=== PATIENT | male | born 1985 | race Caucasian/White ===

== ENCOUNTER 2021-01-13 11:35 | Inpatient (IN) | payer OTHER ==
[~2021-01-13] VITALS: Ht 172.7 cm; Wt 72.1 kg
[2021-01-13 12:00] VITALS: BP 163/116
[2021-01-13] MEDS ORDERED: NORVASC10 MG PO (12:08)
[2021-01-13] MEDS ORDERED: ROXICODONE5 M2 PO (12:08)
[2021-01-13] MEDS ORDERED: ELIQUIS5 MG PO (12:09)
[2021-01-13] MEDS ORDERED: CARVEDILOL12.5 MG PO (12:09)
[2021-01-13] MEDS ORDERED: METHOCARBAMOL750 MG PO (12:10)
[2021-01-13] MEDS ORDERED: SENNA8.6 MG PO (12:10)
[2021-01-13] MEDS ORDERED: OMEPRAZOLE 20 M20 M1 PO (12:10)
[2021-01-13] MEDS ORDERED: SUPER THERAVIT1 EACH PO (12:11)
[2021-01-13] MEDS ORDERED: ACETAMINOPHEN500 MG PO (12:11)
[2021-01-13 12:36] LABS: ABSOLUTE NEUTROPHILS 6.6 thou/uL (1.4-8.2); BASOPHILS 0.6 % (0.0-2.0); EOSINOPHILS 0.7 % (0.0-3.0); HEMATOCRIT 48.3 % (42.0-52.0); LYMPHOCYTES 22.3 % (24.0-44.0); MCH 27.4 pg (26.0-34.0); MCHC 33.1 g/dL (28.0-37.0); MCV 82.8 fL (80.0-100.0); MONOCYTES 7.1 % (1.0-8.0); PLATELET COUNT 292 thou/uL (150-400); POLYS 69.3 % (36.0-66.0); RBC 5.83 mil/uL (4.50-6.00); RDW 14.9 % (10.5-14.5); WBC 9.6 thou/uL (4.0-11.0)
[2021-01-13 12:50] LABS: ALBUMIN 4.1 g/dL (3.4-5.0); CREATININE 1.2 mg/dL (0.7-1.3); POTASSIUM 3.8 mmol/L (3.5-5.1); TOTAL BILIRUBIN 0.7 mg/dL (0.2-1.0); TOTAL PROTEIN 7.2 g/dL (6.4-8.2)
[2021-01-13 12:56] LABS: CALCIUM 9.2 mg/dL (8.5-10.1)
[2021-01-13 15:07] LABS: URINE BILIRUBIN NEGATIVE (Negative); URINE BLOOD NEGATIVE (Negative); URINE CLARITY CLEAR; URINE COLOR YELLOW; URINE GLUCOSE-RANDOM* NEGATIVE (Negative); URINE KETONES TRACE (Negative); URINE LEUKOCYTES-REFLEX NEGATIVE (Negative); URINE NITRITE-REFLEX NEGATIVE (Negative); URINE PROTEIN (DIPSTICK) NEGATIVE (Negative); URINE UROBILINOGEN 0.2 E.U./dl (0.2-1.0)
[2021-01-13 15:17] VITALS: BP 159/100
[2021-01-13 17:57] VITALS: BP 164/91
[2021-01-13 18:40] VITALS: BP 165/80
[2021-01-13 23:17] VITALS: BP 154/95
[2021-01-14] VITALS (7 sets, daily range): BP systolic 151–187; BP diastolic 10–148
[2021-01-14 05:51] LABS: HEMATOCRIT 48.5 % (42.0-52.0); HEMOGLOBIN 15.8 gm/dL (14.0-18.0); MCH 27.8 pg (26.0-34.0); MCHC 32.6 g/dL (28.0-37.0); MCV 85.3 fL (80.0-100.0); RBC 5.68 mil/uL (4.50-6.00); RDW 14.7 % (10.5-14.5); WBC 12.1 thou/uL (4.0-11.0)
[2021-01-14 06:05] LABS: CALCIUM 8.9 mg/dL (8.5-10.1); CREATININE 0.9 mg/dL (0.7-1.3); POTASSIUM 3.7 mmol/L (3.5-5.1)
--- NOTE | 2021-01-14 06:30 | NUR ---
Admission history and assessments completed. Patient is alert and oriented but very selective when answering question, CIWA 10-13 Ativan given, IVFluids infusing, Has a lot of nausea, Zofran given. No pain medication given due to vomiting. Restless at times. Fall precautions in place. Patient managed to get in the shower and got water overflowing all over the floor. Frequently pulling off telemetry wires off.
--- NOTE | 2021-01-14 12:49 | NUR ---
Chart reveiwed and case discussed with the care team. Pt aggitated and struggling with pain issues this am. Surgery consult in progress. Will ask [employer] to screen [place] as the pt is without insurance. The pt is normally indep with gait and adl's prior to admission. Dc needs are uncertain at this time. Will follow.
--- NOTE | 2021-01-14 19:55 | NUR ---
RN ASSUMED PT'S CARE AT 0700-1900PM, PT IS A&OX3 ( PERSON, TIME AND PLACE), RN HAS REPORTED PT'S N/V AND ABD PAIN , NEW ORDER RECEVED , PT STARTS NPO ANS PT'S PAIN MEDICATION HAS CHANGED, PT STARTS IV ABX, PT'S PAIN AND N/V HAVE IMPROVED, PT'S VS HAVE IMPROVED TOO,
--- NOTE | 2021-01-14 22:50 | NUR ---
PT ALERT AND ORIENTED X4. VSS AFEBRILE. BP MODERATELY ELEVATED. C/O GRIFFIN. MEDICATED WITH FENTANYL ORDERED. PRESENTLY HE IS SLEEPING. NO C/O N/V. BED DOWN. CALL LIGHT IN REACH. BED ALARM IS ON. WILL CONTINUE TO MONITOR PT FOR CHANGES.
[2021-01-15 00:36] VITALS: BP 156/115
--- NOTE | 2021-01-15 01:11 | NUR ---
NOTIFIED NO OF BP156/115. WILL RECHECK IN 2 HRS AND CALL IF STILL ELEVATED ORDERED.
[2021-01-15 02:25] VITALS: BP 169/115
[2021-01-15 03:52] VITALS: BP 145/75
[2021-01-15 04:00] LABS: HEMATOCRIT 46.7 % (42.0-52.0); HEMOGLOBIN 15.5 gm/dL (14.0-18.0); MCH 27.7 pg (26.0-34.0); MCHC 33.1 g/dL (28.0-37.0); MCV 83.5 fL (80.0-100.0); RBC 5.59 mil/uL (4.50-6.00); RDW 14.5 % (10.5-14.5); WBC 9.4 thou/uL (4.0-11.0)
[2021-01-15 04:55] LABS: ALBUMIN 3.2 g/dL (3.4-5.0); CALCIUM 8.5 mg/dL (8.5-10.1); CREATININE 0.8 mg/dL (0.7-1.3); MAGNESIUM 1.5 mg/dL (1.8-2.4); POTASSIUM 3.5 mmol/L (3.5-5.1); TOTAL BILIRUBIN 0.6 mg/dL (0.2-1.0)
--- NOTE | 2021-01-15 07:04 | NUR ---
BP BETTER AFTER HYDRALAZINE. 145/75. PT SLEEPINF AFTER FENTANYL GIVEN FOR PPAIN.
[2021-01-15 07:42] VITALS: BP 140/98
[2021-01-15 15:30] VITALS: BP 150/107
--- NOTE | 2021-01-15 18:05 | NUR ---
RN ASSUMED PT'S CARE AT 0700AM, PT IS A&OX4, PT IS CONTINUING IV ABX AND PAIN MANAGEMENT, PT'S ABD PAIN AND N/V HAVE IMPROVED, PT 'S VS ARE STABLE, PT IS GOING TO HAVE EGD TOMORROW, PT HAS SIGNED THE CONSENT, PT IS TOLERAIVED CLEAR LIQUID DIET AT DINNER TIME.
[2021-01-15 19:16] VITALS: BP 139/98
[2021-01-16 02:59] VITALS: BP 129/101
[2021-01-16 07:25] VITALS: BP 139/96
--- NOTE | 2021-01-16 08:13 | NUR ---
PT MAKING PROGRESS TOWARDS GOALS. HAS DENIED ANY NAUSEA OVERNIGHT.
[2021-01-16 09:08] LABS: ALBUMIN 3.2 g/dL (3.4-5.0); CALCIUM 8.9 mg/dL (8.5-10.1); CREATININE 0.9 mg/dL (0.7-1.3); MAGNESIUM 2.2 mg/dL (1.8-2.4); POTASSIUM 4.4 mmol/L (3.5-5.1); TOTAL BILIRUBIN 0.5 mg/dL (0.2-1.0); TOTAL PROTEIN 6.5 g/dL (6.4-8.2)
--- NOTE | 2021-01-16 16:01 | NUR ---
TODAY THIS PT HAS HAD SOME STATED PAIN IN WHICH HE WAS MEDICATED. HE HAS HAD HIS EGD DOWN TODAY AND SINCE HE HAS BEEN BACK THERE HAS BEEN NO COMPLAINTS. HE WAS ABLE TO TOLERATE A FULL LIQUID DIET WELL AND HAS HAD HIS DIET ADVANCED TO REG. HE OTHERWISE AWAITS FOR THE NEXT PLAN.
[2021-01-16 17:47] VITALS: BP 139/96
--- NOTE | 2021-01-18 17:34 | P ---
[facility] [place] [address] PROCEDURE REPORT Name: YOANA VELIZ Room #: 358-P [facility] IN M.R.#: [id number] Admission: 01/13/21 Attend Phys: Alicia Garza MD Discharge: 01/16/21 Date of : 85 Report #: [id number] THIS REPORT FOR: cc: NO FAMILY PHYSICIAN or PCP NO FAMILY PHYSICIAN or PCP Jatin Simpson MD ~ cc: Bryn Freeman MD, Sunil Knowles MD DATE OF SERVICE: 01/16/2021 PROCEDURE PERFORMED: Upper endoscopy. HISTORY OF PRESENT ILLNESS: The patient is a 35-year-old male with admission for abdominal pain, nausea, vomiting and was diagnosed with acute pancreatitis. He has a history of alcohol abuse. He has had multiple episodes of acute pancreatitis, likely secondary to alcohol abuse in the past. He underwent a CT scan of the abdomen and pelvis showing retroperitoneal edema at the level of the third and fourth portion of the duodenum. The duodenal wall is thickened measuring as much as 1 cm. His lipase has improved during this hospitalization. Lipase today is 492. He is feeling better. No previous history of upper endoscopy. DESCRIPTION OF PROCEDURE: The risks and benefits of the procedure were explained to the patient, those risks including but not limited to bleeding, perforation and the risk of sedation. He understood these risks and gave informed consent. Sedation was given using propofol per anesthesia. Next, using a standard Olympus upper endoscope, the scope was placed in the patient's mouth and advanced under direct vision through the esophagus, stomach and into the third portion of the duodenum. The larynx was normal in appearance. The esophagus was normal throughout. The GE junction was normal. Overall, the gastric mucosa was normal. The pylorus was normal and patent. The duodenal bulb, first, second and third portion were all normal. No evidence of duodenitis or ulcerations. The scope was then withdrawn and the procedure terminated. The patient tolerated the procedure well. IMPRESSION: Normal upper endoscopy. RECOMMENDATIONS: Continue supportive care for acute pancreatitis. The patient is improving. We will advance diet. Suspect CT findings are due to pancreatitis and not duodenitis. [facility] [address] [place] [address] PROCEDURE REPORT Name: YOANA VELIZ Room #: 358-P [facility] IN M.R.#: [id number] Admission: 01/13/21 Attend Phys: Alicia Garza MD Discharge: 01/16/21 Date of : 85 Report #: [id number] Thank you for allowing me to participate in his care. <ELECTRONICALLY SIGNED> By: Jatin Simpson MD 01/18/21 1734 [id number] Jatin Simpson MD /nt
== END 2021-01-16 18:07 | disposition home or self-care (01) | DRG 391 ==
LOC: ER 11:35 → 3W 15:12 → EROBS 15:12 → 3W 18:05
PROVIDERS: Hospitalist; Physician Assistant; ADMIT Internal Medicine; ATTEND Internal Medicine
PROC: 0DJ08ZZ Inspection of Upper Intestinal Tract, Via Natural or Artificial Opening Endoscopic (ICD-10-PCS; principal; 2021-01-16)
DX: K29.80 Duodenitis without bleeding (principal); K85.20 Alcohol induced acute pancreatitis without necrosis or infection; I16.0 Hypertensive urgency; F10.10 Alcohol abuse, uncomplicated; I10 Essential (primary) hypertension; Z86.718 Personal history of other venous thrombosis and embolism; Z79.01 Long term (current) use of anticoagulants; Z20.822 Contact with and (suspected) exposure to COVID-19
CPT/HCPCS: 10879; 62110; 62900; 70005